=== PATIENT | male | born 1975 | race African-American/Black ===

== ENCOUNTER 2023-10-15 06:40 | Emergency (ER) | payer SELFPAY ==
[~2023-10-15] VITALS: Ht 177.8 cm; Wt 78.0 kg
[2023-10-15 06:57] VITALS: BP 110/86; PULSE 86; RESP 16; TEMP 98.4; O2SAT 100
[2023-10-15] MEDS ORDERED: CYCL10TA21 MT (08:57)
[2023-10-15] MEDS ORDERED: IBUP-2029 MT (08:57)
[2023-10-15] MEDS: KETOROLAC 60MG/2ML VIAL IM ONE (09:00)
== END 2023-10-15 10:02 | disposition home or self-care (01) ==
LOC: ER 06:40
DX: M54.50 Low back pain, unspecified (principal); M25.522 Pain in left elbow; V98.8XXA Other specified transport accidents, initial encounter; Y93.89 Activity, other specified; Y92.89 Other specified places as the place of occurrence of the external cause; Y99.8 Other external cause status
CPT/HCPCS: 72100; 73080; 99284